=== PATIENT | female | born 1935 | race Caucasian/White ===

== ENCOUNTER 2024-02-03 16:09 | Emergency (ER) | payer MEDICARE ==
[2024-02-03 16:27] VITALS: RESP 18; TEMP 97
--- NOTE | 2024-02-03 16:50 | ERPHSYRPT ---
- History of Present Illness Time Seen by Provider: 02/03/24 16:50 Source: patient Exam Limitations: no limitations Patient Subjective Stated Complaint: pt here for back for a couple days. she fell a week ago but does not believe that caused her back pain, pain startes at shoulders and radiates to lower back Triage Nursing Assessment: pt alert, resp easy, walked in. skin w/w/p. no edema noted, moves all ext well Physician History: The patient, with a history of spinal fusion, presents with worsening pain from the neck down, affecting the back and legs. The pain has been a long-standing issue but has recently intensified. The patient also experienced a fall a week ago, which may have exacerbated the pain. She reports difficulty walking and feeling unsteady on her feet. Her back appears more crooked than before, possibly due to the Dowager's hump and previous spinal fusion. In addition to the pain, she has been experiencing severe headaches. She has a history of squamous cell skin cancer and has been treated with a topical agent. The headaches started after the treatment. She also reports worsening vision, which may contribute to the headaches. 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 She occasionally experiences dizziness, which has worsened with the intensification of the pain. She has to be careful while walking due to the dizziness and unsteadiness. Timing/Duration: week(s) (1) Method of Injury: fall Quality: throbbing Back Pain Location: C-spine, T-spine, lumbar spine, paraspinous muscles Severity of Pain-Max: severe Severity of Pain-Current: severe Modifying Factors: Worsens With: movement Associated Symptoms: light-headedness, dizziness, weakness, lower back pain, muscle spasms, No fever, No chills, No urinary incontinence, No loss of bowel control, No nausea, No vomiting, No problems urinating, No numbness in legs/feet, No sensory/motor loss, No tingling in legs/feet Previous symptoms: same symptoms as today Allergies/Adverse Reactions: No Known Drug Allergies Allergy (Unverified 02/03/24 16:22) Hx Influenza Vaccination/Date Given: Yes Hx Pneumococcal Vaccination/Date Given: Yes Immunizations Up to Date: Yes Travel Risk - International Travel Have you traveled outside of the country in past 3 weeks: No - Emerging Infectious Disease Are you exhibiting symptoms associated with any current EIDs: No - Review of Systems All Other Systems: Reviewed and Negative - Past Medical History Pertinent Past Medical History: Yes Respiratory History: COPD History: Renal Disease Other Medical History: skin ca, - Past Surgical History Past Surgical History: Yes Gastrointestinal: Appendectomy Genitourinary: Kidney Surgery Musculoskeletal: Orthopedic Surgery Female Surgical History: Hysterectomy Other Surgical History: back - Social History Smoking Status: Former smoker Exposure to second hand smoke: No Drug Use: none - Social Determinants of Health Will the patient participate in the screening: Declined to provide - Nursing Vital Signs Nursing Vital Signs: Initial Vital Signs Temperature 97.0 F 02/03/24 16:26 Pulse Rate 97 H 02/03/24 16:26 Respiratory Rate 18 02/03/24 16:26 Blood Pressure 112/66 02/03/24 16:26 O2 Sat by Pulse Oximetry 98 02/03/24 16:26 Pain Scale Pain Intensity [Back] 8 Pain Intensity 3 - Physical Exam General Appearance: no apparent distress Eye Exam: PERRL/EOMI Neck Exam: limited range of motion, midline tenderness Respiratory Exam: normal breath sounds, lungs clear, No respiratory distress Cardiovascular Exam: regular rate/rhythm, normal heart sounds Gastrointestinal Exam: soft, No tenderness Back Exam: vertebral tenderness, decreased range of motion, muscle spasm, point tenderness Neurologic Exam: alert, oriented x 3, cooperative, 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, normal mood/affect, nml cerebellar function Skin Exam: normal color, warm, No rash SpO2 Interpretation: normal SpO2: 98 O2 Delivery: Room Air - Course Nursing assessment & vital signs reviewed: Yes - CT Exams Head CT Interpretation: Tele-radiologist Report, No/Intracranial Hemorrhag Soft Tissue Neck CT Interpretation: Negative, Tele-radiologist Report Ordered Tests: Medication Summary Discontinued Medications Generic Name Dose Route Start Last Admin Trade Name Freq PRN Reason Stop Dose Admin Hydrocodone Bitart/Acetaminophen 1 tablet 02/03/24 16:51 02/03/24 17:11 Hydrocodone/Acetamin 10-325 Mg Tablet PO 02/03/24 16:52 1 tablet ONCE ONE Administration Hydrocodone Bitart/Acetaminophen Confirm 02/03/24 17:04 Hydrocodone/Acetamin 10-325 Mg Tablet Administered 02/03/24 17:05 Dose 1 tablet .ROUTE .STK-MED ONE Hydrocodone Bitart/Acetaminophen 2 tablet 02/03/24 21:39 02/03/24 21:42 Hydrocodone/Acetamin 10-325 Mg Tablet PO 02/08/24 21:38 2 tablet Q4H PRN PRN Administration PAIN Hydrocodone Bitart/Acetaminophen Confirm 02/03/24 21:40 Hydrocodone/Acetamin 10-325 Mg Tablet Administered 02/03/24 21:41 Dose 2 tablet .ROUTE .STK-MED ONE Cyclobenzaprine HCl 10 mg 02/03/24 16:51 02/03/24 17:12 Cyclobenzaprine Hcl 10 Mg Tablet PO 02/03/24 16:52 10 mg STAT ONE Administration Cyclobenzaprine HCl Confirm 02/03/24 17:03 Cyclobenzaprine Hcl 10 Mg Tablet Administered 02/03/24 17:04 Dose 10 mg .ROUTE .STK-MED ONE Sodium Chloride 1,000 mls @ 999 mls/hr 02/03/24 16:52 02/03/24 18:20 Sodium Chloride 0.9% 1000 Ml IV 02/03/24 17:52 Infused .Q1H1M STA Infusion Sodium Chloride Confirm 02/03/24 17:04 Sodium Chloride 0.9% 1000 Ml Administered 02/03/24 17:05 Dose 1,000 mls @ ud .ROUTE .STK-MED ONE Ceftriaxone Sodium 2 gm in 100 mls @ 200 mls/hr 02/03/24 17:22 02/03/24 18:19 Rocephin 2 Gm/100 Ml Nacl IV 02/03/24 17:51 Infused STAT ONE Infusion Ceftriaxone Sodium Confirm 02/03/24 17:26 Rocephin 2 Gm/100 Ml Nacl Administered 02/03/24 17:27 Dose 2 gm in 100 mls @ ud IV .STK-MED ONE Lab/Rad Data: Laboratory Result Diagrams 02/03/24 18:45 02/03/24 19:10 Laboratory Results 02/03/24 02/03/24 02/03/24 Range/Units 19:10 18:45 16:57 WBC 13.1 H (3.98-10.04) x10^3/uL RBC 2.69 L (3.93-5.22) x10^6/uL Hgb 8.6 L (11.2-15.7) g/dL Hct 26.3 L (34.1-44.9) % MCV 97.8 H (79.4-94.8) fL MCH 32.0 (25.6-32.2) pg MCHC 32.7 (32.2-35.5) g/dL RDW 15.1 H (11.7-14.4) % Plt Count 369 (182-369) x10^3/uL MPV 9.6 (9.4-12.3) fL Gran % 80.6 H (34.0-71.1) % Immature Gran % (Auto) 0.3 (0.001-0.429) % Nucleat RBC Rel Count 0.0 (0.00-0.2) % Eos # (Auto) 0.04 (0.04-0.36) x10^3/uL Immature Gran # (Auto) 0.04 H (0.001-0.031) x10^3u/L Absolute Lymphs (auto) 1.01 L (1.18-3.74) x10^3/uL Absolute Monos (auto) 1.40 H (0.24-0.86) x10^3/uL Absolute Nucleated RBC 0.00 (0.00-0.012) x10^3u/L Lymphocytes % 7.7 L (19.3-51.7) % Monocytes % 10.7 (4.7-12.5) % Eosinophils % 0.3 L (0.7-5.8) % Basophils % 0.4 (0.1-1.2) % Absolute Granulocytes 10.51 H (1.56-6.13) x10^3/uL Basophils # 0.05 (0.01-0.08) x10^3/uL Sodium 139 (135-145) mmol/L Potassium 3.8 (3.5-5.1) mmol/L Chloride 105 (98-107) mmol/L Carbon Dioxide 26 (22-30) mmol/L Anion Gap 11.8 (5-15) MEQ/L BUN 51 H (7-17) mg/dL Creatinine 2.24 H (0.52-1.04) mg/dL Estimated GFR 20.9 ML/MIN Glucose 73 L (74-106) mg/dL Calcium 9.5 (8.4-10.2) mg/dL Total Bilirubin 0.20 (0.2-1.3) mg/dL AST 33 (14-36) U/L ALT 25 (0-35) U/L Alkaline Phosphatase 83 (38-126) U/L Serum Total Protein 6.8 (6.3-8.2) g/dL Albumin 3.2 L (3.5-5.0) g/dL Urine Color Yellow (Yellow) Urine Appearance Cloudy A (Clear) Urine pH 5.0 (4.6-8.0) Ur Specific Shirley 1.015 (1.005-1.030) Urine Protein 30 (Negative) Urine Glucose (UA) Negative (Negative) mg/dL Urine Ketones Negative (Negative) Urine Blood Trace (Negative) Urine Nitrite Negative (Negative) Urine Bilirubin Negative (Negative) Urine Urobilinogen 0.2 (0.2) mg/dL Ur Leukocyte Esterase Moderate A (Negative) U Hyaline Cast (Auto) 6-10 A (0-2) /LPF Urine Microscopic RBC 0-2 (0-5) /HPF Urine Microscopic WBC 51-100 A (0-5) /HPF Ur Epithelial Cells Few (None Seen) /HPF Urine Bacteria Many A (None Seen) /HPF Urine Culture Reflexed YES (NO) - Progress Progress: improved Progress Note: Patient given [place] and Flexeril to help with pain and spasm. Based on her recent unsteadiness, falls, dizziness and worsening neck pain I do feel it is necessary to r/o posterior circulation CVA. I had a long discussion with the pat janna and her daughter about getting a CT study with contrast and the risks vs benefits. Patient does have only only kidney which doesn't function at 100%. They feel getting the imaging is important and would like to proceed. We will hydrate before and after contrast to help prevent contrast nephropathy. Patient was found to have a UTI and given 2g Rocephin. She was d/c'd on Keflex. CT scan showed no signs of posterior CVA. Script sent for [place] and Flexeril. Encouraged f/u with back specialist. Counseled pt/family regarding: lab results, diagnosis, need for follow-up, rad results Medical Desision Making - Independent Historian Additional History obtained from: Child - Diagnostic Testing Diagnostic test were ordered, analyzed, and reviewed by me: Yes Radiological Interpretation: Interpreted by me, Reviewed by me, Teleradiologist Report - Risk of complications The pt has a mod risk of morbidity or mortality based on: Need for prescription drug management - Departure Clinical Impression: UTI (urinary tract infection), Lumbar back pain, Thoracic back pain, Cervical spine pain, DDD (degenerative disc disease) Condition: Good Critical Care Time: No Referrals: OTTONIEL CADENA, MUSHROOM GROWING SUPERVISOR [Primary Care Provider] - Follow up/PCP as directed Instructions: Urinary tract infections in adults, Low Back Pain (DC) Prescriptions: Cyclobenzaprine HCl 10 mg PO TID PRN 5 Days #15 tablet PRN Reason: Muscle Spasms Hydrocodone/Acetaminophen [Hydrocodone-Acetamin 10-325 mg] 1 each PO Q6H PRN 3 Days #12 tablet MDD 4 tab PRN Reason: Pain Cephalexin Mh 500 mg [Keflex 500 mg] 500 mg PO BID 7 Days #14 cap
[2024-02-03] MEDS ORDERED: Cyclobenzaprine 10 MG ONE (17:03)
[2024-02-03] MEDS ORDERED: NORCO 10-325 MG ONE ×2 (17:04→21:40)
[2024-02-03] MEDS ORDERED: Sodium Chloride 0.9% 1000 ML 1,000 ML ONE (17:04)
[2024-02-03] MEDS: NORCO 10-325 MG PO ONE (17:11)
[2024-02-03] MEDS: Sodium Chloride 0.9% 1000 ML 1,000 ML IV STA (17:12)
[2024-02-03] MEDS: Cyclobenzaprine 10 MG PO ONE (17:12)
[2024-02-03 17:19] LABS: Appearance Cloudy (Clear); Bacteria Many /HPF (None Seen); Bilirubin Negative (Negative); Blood Trace (Negative); Epithelial Cells Few /HPF (None Seen); Glucose, Urine Negative (Negative); Ketones Negative (Negative); Leukocyte Esterase Moderate (Negative); Nitrite Negative (Negative); Protein,Urine Dip 30 (Negative); RBC 0-2 /HPF (0-5); Specific Gravity 1.015 (1.005-1.030); Urobilinogen 0.2 mg/dL (0.2); WBC 51-100 /HPF (0-5)
[2024-02-03 17:20] LABS: ADD URINE CULTURE? YES (NO)
[2024-02-03] MEDS ORDERED: ROCEPHIN 2 GM/100 ML NACL 2 GM/100 ML IVPB IV ONE (17:26)
[2024-02-03] MEDS: ROCEPHIN 2 GM/100 ML NACL 2 GM/100 ML IVPB IV ONE (17:30)
[2024-02-03 19:08] LABS: Absolute Neutrophil Ct (ANC) 10.51 x10^3/uL (1.56-6.13); BASOPHIL % 0.4 % (0.1-1.2); Basophil (Absolute #) 0.05 x10^3/uL (0.01-0.08); Eosinophil % 0.3 % (0.7-5.8); Eosinophil (Absolute #) 0.04 x10^3/uL (0.04-0.36); Hematocrit 26.3 % (34.1-44.9); Hemoglobin 8.6 g/dL (11.2-15.7); IMMATURE GRAN # 0.04 x10^3u/L (0.001-0.031); IMMATURE GRAN % 0.3 % (0.001-0.429); Lymphocyte (Absolute #) 1.01 x10^3/uL (1.18-3.74); Lymphocytes % 7.7 % (19.3-51.7); Mean Cell Volume 97.8 fL (79.4-94.8); Mean Corpuscular Hgb Concent. 32.7 g/dL (32.2-35.5); Mean Platelet Volume 9.6 fL (9.4-12.3); Monocytes % 10.7 % (4.7-12.5); Neutrophil % 80.6 % (34.0-71.1); Platelet Count 369 x10^3/uL (182-369); Red Blood Count 2.69 x10^6/uL (3.93-5.22); Red Cell Distribution Width 15.1 % (11.7-14.4); White Blood Count 13.1 x10^3/uL (3.98-10.04)
[2024-02-03 19:21] LABS: ALBUMIN 3.2 g/dL (3.5-5.0); ANION GAP 11.8 MEQ/L (5-15); BILIRUBIN,TOTAL 0.2 mg/dL (0.2-1.3); Calcium 9.5 mg/dL (8.4-10.2); Creatinine 1 2.24 mg/dL (0.52-1.04); EST GLOMERULAR FILTRATION RATE 20.9 ML/MIN; Potassium 3.8 mmol/L (3.5-5.1); Total Protein 6.8 g/dL (6.3-8.2)
[2024-02-03 21:05] VITALS: BP 110/58; PULSE 70
[2024-02-03 21:35] VITALS: O2SAT 98
[2024-02-03] MEDS: NORCO 10-325 MG PO PRN (21:42)
--- NOTE | 2024-02-04 08:55 | XRAY ---
Indication: Head/neck pain and dizziness. Conventional contrast enhanced CTA neck performed using 80 cc Isovue 370 contrast. 2-D sagittal and coronal reformatted images obtained. Additional 3-D reformatted images obtained using a separate workstation. Comparison: None Examination right carotid circulation demonstrates punctate arteriosclerotic calcification at the level of bulb. Remaining common carotid, carotid bulb, internal carotid, and external carotid arteries are normal in CTA appearance. Examination left carotid circulation demonstrates minimal eccentric calcification distal common carotid artery without critical stenosis/obstruction. Remaining common carotid, carotid bulb, internal carotid, and external carotid arteries are normal in CTA appearance. Vertebral arteries are bilaterally patent with the right slightly larger in caliber. Visualized soft tissues are negative for pathologic cervical/supraclavicular lymphadenopathy. Thyroid gland enhances homogeneously. Supra-and infraglottic airway widely patent. Visualized cervical spine intact with osteopenia and mild/moderate multilevel degenerative spondylosis greatest at C4-C5. Mild degenerative changes left TMJ. Patient is edentulous. Lung apices demonstrates diffuse pulmonary emphysema. Impression: 1. Very minimal arteriosclerotic calcifications bilaterally. Negative for critical stenosis/obstruction. 2. Chronic findings including osteopenia, degenerative changes, and pulmonary emphysema.
--- NOTE | 2024-02-04 08:59 | XRAY ---
Indication: Head/neck pain and dizziness. Initial CT head performed without contrast. Then conventional contrast enhanced CTA head performed using 80 cc Isovue 370 contrast. 2-D sagittal and coronal reformatted images obtained. Additional 3-D reformatted images obtained using a separate workstation. Comparison: None CT head without contrast demonstrates age-appropriate global atrophy and minimal periventricular degenerative micro-ischemia bilaterally. No acute intracranial hemorrhage, abnormal extra-axial fluid collection, or mass effect. Incidental pneumatized dorsum sella. Fourth ventricle is midline without hydrocephalus. Bony calvarium intact. Visualized paranasal sinuses and mastoid air cells are clear. CTA head demonstrates mild scattered arteriosclerotic calcifications in both parasellar internal carotid arteries without critical stenosis/obstruction. Normal carotid terminus with normal branching A1 and M1 segments bilaterally. More distal anterior and middle cerebral arteries are normal in CTA appearance. Posterior circulation demonstrates normal CTA appearance to the basilar, left/right posterior cerebral, and left/right superior cerebellar arteries. Venous sinuses/drainage unremarkable. Brain parenchyma is negative for abnormal enhancing intra or extra-axial mass. Impression: 1. CT head without contrast is nonacute with senile changes. 2. 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 Remaining CTA head is negative.
== END 2024-02-03 21:47 | disposition home or self-care (01) ==
LOC: ED 16:09
DX: N39.0 Urinary tract infection, site not specified (principal); M54.50 Low back pain, unspecified; M54.6 Pain in thoracic spine; M50.30 Other cervical disc degeneration, unspecified cervical region; R51.9 Headache, unspecified; R26.81 Unsteadiness on feet; N18.30 Chronic kidney disease, stage 3 unspecified; Z90.5 Acquired absence of kidney; Z79.891 Long term (current) use of opiate analgesic; Z79.899 Other long term (current) drug therapy
CPT/HCPCS: 36000; 36415; 70496; 70498; 80053; 81001; 85025; 87077; 87086; 87186; 96360; 96365; 99284; J0696; A9270-GY